=== PATIENT | female | born 1990 | race Caucasian/White ===

== ENCOUNTER 2022-01-11 08:13 | Outpatient (CLI) | payer OTHER | END 2022-01-11 08:14 | disposition critical access hospital (66) | LOC: EMS 08:13 | DX: R56.9 Unspecified convulsions (principal); R41.0 Disorientation, unspecified | CPT/HCPCS: A0425; A0429 ==

== ENCOUNTER 2022-01-11 08:24 | Emergency (ER) | payer OTHER ==
[~2022-01-11 08:24] MED LIST: DEXTROSE 10% 250 ML IV ONE
[2022-01-11] MEDS ORDERED: LORazepam 2 MG/ML VIAL IVP STA ×6 (08:31→15:51)
[2022-01-11] MEDS ORDERED: LORazepam 2 MG/ML VIAL ONE ×2 (08:33→15:47)
[2022-01-11] MEDS ORDERED: SODIUM CHLORIDE 0.9% 1,000 ML IV STA (08:33)
--- NOTE | 2022-01-11 08:36 | ED Physician Documentation ---
PD HPI SEIZURE - Stated complaint Stated Complaint: POST SZ - History obtained from History obtained from: Family (spouse), EMS - History of Present Illness Timing - onset: Today Witnessed: Witnessed Number of seizures: Multiple (The patient has had some mild cough and congestion over the last few days. No vomiting. This morning the noted her to be confused and having unpurposeful movements of the arms and legs. He offered her some juice and she took some sips. Then had a general stiffening/snoring breathing.) Description of seizure activity: Generalized Injury during seizure: No: Fell, Head injury Associated symptoms: Other (recent URI symptoms for few days.). No: Nausea / vomiting Contributing factors: Fever. No: Low blood sugar, Head injury Similar symptoms before: Has not had sx before Recently seen: Not recently seen Review of Systems Unable to obtain: Other (info from ) Constitutional: reports: Myalgias Nose: reports: Rhinorrhea / runny nose, Congestion Respiratory: reports: Cough GI: denies: Vomiting, Diarrhea Neurologic: denies: Headache (had not been complaining of notable headache per .) PD PAST MEDICAL HISTORY - Past Medical History Cardiovascular: None Respiratory: None Neuro: None Endocrine/Autoimmune: None - Past Surgical History Past Surgical History: No - Present Medications Home Medications: Ambulatory Orders Medication Instructions Recorded Confirmed Norgestimate-Ethinyl Estradiol 1 tab PO DAILY 12/17/14 12/17/14 [Ortho Tri-Cyclen 28 Tablet] - Allergies Allergies/Adverse Reactions: Allergies Allergy/AdvReac Type Severity Reaction Status Date / Time No Known Drug Allergies Allergy Verified 01/11/22 08:47 - Living Situation Living Situation: reports: With spouse/s.o. Living Arrangement: reports: At home - Social History Does the pt smoke?: No Smoking Status: Never smoker Does the pt drink ETOH?: No Does the pt have substance abuse?: No Substance Use and Type: Marijuana PD ED PE NORMAL - Vitals Vital signs reviewed: Yes - General General: Well developed/nourished, Other (tenseness of left arm, some thrashing of legs at times. Eyes deviated to right. Facial muscle tension, more to the left. ) - HEENT HEENT: Atraumatic, Other (Patient has a adequate gag reflex.) - Neck Neck: Supple, no meningeal sign, No adenopathy - Cardiac Cardiac: RRR (tachycardic but regular), No murmur - Respiratory Respiratory: No respiratory distress, Clear bilaterally - Abdomen Abdomen: Soft, Non distended - Derm Derm: Normal color, Warm and dry, No rash - Extremities Extremities: No edema, No calf tenderness / cord - Neuro Neuro: No motor deficit (She is having symmetric extremity movement after Ativan with apparent cessation of the seizure. She is not opening her her eyes nor interactive.). No: Alert and oriented X 3 Results - Vitals Vitals: Vital Signs - 24 hr 01/11/22 01/11/22 01/11/22 08:38 09:04 09:30 Temperature 36.5 C Heart Rate 124 H 119 H 115 H Respiratory 25 H 24 26 H Rate Blood Pressure 126/109 H 147/89 H 126/103 H O2 Saturation 95 96 99 If not protocol 2 : Oxygen Flow, liters/minute 01/11/22 01/11/22 01/11/22 10:00 10:30 11:21 Temperature Heart Rate 109 H 108 H 112 H Respiratory 30 H 24 25 H Rate Blood Pressure 151/109 H 148/75 H 148/93 H O2 Saturation 99 99 100 If not protocol 2 : Oxygen Flow, liters/minute 01/11/22 01/11/22 01/11/22 11:30 12:55 13:30 Temperature 37.8 C Heart Rate 124 H 126 H 121 H Respiratory 28 H 38 H 24 Rate Blood Pressure 125/111 H 136/123 H 135/102 H O2 Saturation 95 100 100 If not protocol 2 2 : Oxygen Flow, liters/minute 01/11/22 01/11/22 14:28 14:30 Temperature 37.6 C Heart Rate 131 H 124 H Respiratory 23 29 H Rate Blood Pressure 153/79 H 127/68 O2 Saturation 100 100 If not protocol 2 : Oxygen Flow, liters/minute Oxygen O2 Source Room air Oxygen Flow Rate 2 - EKG (time done) 08:39 Rate: Rate (enter#) (114) Rhythm: Sinus tachycardia [place]: Normal Intervals: Normal VT QRS: Normal Ischemia: Normal ST segments. No: ST elevation c/w ischemia, ST depression - Labs Labs: Microbiology 01/11/22 11:04 CSF Culture - Preliminary Cerebral Spinal Fluid Laboratory Tests 01/11/22 01/11/22 01/11/22 08:39 08:39 08:39 WBC 9.2 RBC 4.76 Hgb 13.8 Hct 41.5 MCV 87.2 MCH 29.0 MCHC 33.3 RDW 12.0 Plt Count 294 MPV 9.9 Neut # (Auto) 6.5 Lymph # (Auto) 2.0 [place] # (Auto) 0.6 Eos # (Auto) 0.0 Baso # (Auto) 0.0 Absolute Nucleated RBC 0.00 Nucleated RBC % 0.0 Sodium 138 Potassium 2.7 L Chloride 113 H Carbon Dioxide 17 L Anion Gap 8.0 BUN 6 Creatinine 0.5 Estimated GFR (MDRD) 146 Glucose 100 Calcium 6.9 L Magnesium 1.4 L Total Bilirubin 0.4 AST 17 ALT 20 Alkaline Phosphatase 44 C-Reactive Protein < 1.0 Total Protein 5.7 L Albumin 3.1 L Globulin 2.6 Albumin/Globulin Ratio 1.2 Lipase 29 Procalcitonin TSH Serum HCG, Qual NEGATIVE Urine Color Urine Clarity Urine pH Ur Specific [place] Urine Protein Urine Glucose (UA) Urine Ketones Urine Occult Blood Urine Nitrite Urine Bilirubin Urine Urobilinogen Ur Leukocyte Esterase Urine RBC Urine WBC Ur Squamous Epith Cells Urine Bacteria Ur Microscopic Review Urine Culture Comments CSF Color CSF Clarity Xanthrochromic CSF WBC CSF RBC CSF Cell Count Tube # CSF Neutrophils CSF Lymphocytes CSF Monocytes CSF Eosinophils % CSF Basophils CSF Glucose CSF Total Protein Nasal Adenovirus (PCR) Nasal B. parapertussis DNA (PCR) Nasal Coronavir 229E PCR Nasal Coronavir HKU1 PCR Nasal Coronavir NL63 PCR Nasal Coronavir OC43 PCR Nasal Enterovir/Rhinovir PCR Nasal Influenza B PCR Nasal Influenza A PCR Nasal Parainfluen 1 PCR Nasal Parainfluen 2 PCR Nasal Parainfluen 3 PCR Nasal Parainfluen 4 PCR Nasal RSV (PCR) Nasal B.pertussis DNA PCR Nasal C.pneumoniae (PCR) [place] Human Metapneumo PCR Nasal M.pneumoniae (PCR) Nasal SARS-CoV-2 (PCR) Urine Opiates Screen Ur Oxycodone Screen Urine Methadone Screen Ur Propoxyphene Screen Ur Barbiturates Screen Ur Tricyclics Screen Ur Phencyclidine Scrn Ur Amphetamine Screen U Methamphetamines Scrn U Benzodiazepines Scrn Urine Cocaine Screen U Cannabinoids Screen 01/11/22 01/11/22 01/11/22 08:39 09:08 09:20 WBC RBC Hgb Hct MCV MCH MCHC RDW Plt Count MPV Neut # (Auto) Lymph # (Auto) [place] # (Auto) Eos # (Auto) Baso # (Auto) Absolute Nucleated RBC Nucleated RBC % Sodium Potassium Chloride Carbon Dioxide Anion Gap BUN Creatinine Estimated GFR (MDRD) Glucose Calcium Magnesium Total Bilirubin AST ALT Alkaline Phosphatase C-Reactive Protein Total Protein Albumin Globulin Albumin/Globulin Ratio Lipase Procalcitonin < 0.05 TSH 0.97 Serum HCG, Qual Urine Color YELLOW Urine Clarity CLEAR Urine pH 6.0 Ur Specific [place] >=1.030 H Urine Protein TRACE Urine Glucose (UA) NEGATIVE Urine Ketones NEGATIVE Urine Occult Blood SMALL H Urine Nitrite NEGATIVE Urine Bilirubin NEGATIVE Urine Urobilinogen 0.2 (NORMAL) Ur Leukocyte Esterase NEGATIVE Urine RBC 0-5 Urine WBC 0-3 Ur Squamous Epith Cells FEW Squamous Urine Bacteria Few Ur Microscopic Review INDICATED Urine Culture Comments NOT INDICATED CSF Color CSF Clarity Xanthrochromic CSF WBC CSF RBC CSF Cell Count Tube # CSF Neutrophils CSF Lymphocytes CSF Monocytes CSF Eosinophils % CSF Basophils CSF Glucose CSF Total Protein Nasal Adenovirus (PCR) NOT DETECTED Nasal B. parapertussis DNA (PCR) NOT DETECTED Nasal Coronavir 229E PCR NOT DETECTED Nasal Coronavir HKU1 PCR NOT DETECTED Nasal Coronavir NL63 PCR NOT DETECTED Nasal Coronavir OC43 PCR NOT DETECTED Nasal Enterovir/Rhinovir PCR NOT DETECTED Nasal Influenza B PCR NOT DETECTED Nasal Influenza A PCR NOT DETECTED Nasal Parainfluen 1 PCR NOT DETECTED Nasal Parainfluen 2 PCR NOT DETECTED Nasal Parainfluen 3 PCR NOT DETECTED Nasal Parainfluen 4 PCR NOT DETECTED Nasal RSV (PCR) NOT DETECTED Nasal B.pertussis DNA PCR NOT DETECTED Nasal C.pneumoniae (PCR) NOT DETECTED [place] Human Metapneumo PCR NOT DETECTED Nasal M.pneumoniae (PCR) NOT DETECTED Nasal SARS-CoV-2 (PCR) NOT DETECTED Urine Opiates Screen NEGATIVE Ur Oxycodone Screen NEGATIVE Urine Methadone Screen NEGATIVE Ur Propoxyphene Screen NEGATIVE Ur Barbiturates Screen NEGATIVE Ur Tricyclics Screen NEGATIVE Ur Phencyclidine Scrn NEGATIVE Ur Amphetamine Screen NEGATIVE U Methamphetamines Scrn NEGATIVE U Benzodiazepines Scrn NEGATIVE Urine Cocaine Screen NEGATIVE U Cannabinoids Screen POSITIVE H 01/11/22 11:04 WBC RBC Hgb Hct MCV MCH MCHC RDW Plt Count MPV Neut # (Auto) Lymph # (Auto) [place] # (Auto) Eos # (Auto) Baso # (Auto) Absolute Nucleated RBC Nucleated RBC % Sodium Potassium Chloride Carbon Dioxide Anion Gap BUN Creatinine Estimated GFR (MDRD) Glucose Calcium Magnesium Total Bilirubin AST ALT Alkaline Phosphatase C-Reactive Protein Total Protein Albumin Globulin Albumin/Globulin Ratio Lipase Procalcitonin TSH Serum HCG, Qual Urine Color Urine Clarity Urine pH Ur Specific [place] Urine Protein Urine Glucose (UA) Urine Ketones Urine Occult Blood Urine Nitrite Urine Bilirubin Urine Urobilinogen Ur Leukocyte Esterase Urine RBC Urine WBC Ur Squamous Epith Cells Urine Bacteria Ur Microscopic Review Urine Culture Comments CSF Color COLORLESS CSF Clarity CLEAR Xanthrochromic ABSENT CSF WBC 93 H* CSF RBC 228 H CSF Cell Count Tube # CSF TUBE# 3 CSF Neutrophils 0 CSF Lymphocytes 70 CSF Monocytes 30 CSF Eosinophils % 0 CSF Basophils 0 CSF Glucose 70 CSF Total Protein 63 H Nasal Adenovirus (PCR) Nasal B. parapertussis DNA (PCR) Nasal Coronavir 229E PCR Nasal Coronavir HKU1 PCR Nasal Coronavir NL63 PCR Nasal Coronavir OC43 PCR Nasal Enterovir/Rhinovir PCR Nasal Influenza B PCR Nasal Influenza A PCR Nasal Parainfluen 1 PCR Nasal Parainfluen 2 PCR Nasal Parainfluen 3 PCR Nasal Parainfluen 4 PCR Nasal RSV (PCR) Nasal B.pertussis DNA PCR Nasal C.pneumoniae (PCR) [place] Human Metapneumo PCR Nasal M.pneumoniae (PCR) Nasal SARS-CoV-2 (PCR) Urine Opiates Screen Ur Oxycodone Screen Urine Methadone Screen Ur Propoxyphene Screen Ur Barbiturates Screen Ur Tricyclics Screen Ur Phencyclidine Scrn Ur Amphetamine Screen U Methamphetamines Scrn U Benzodiazepines Scrn Urine Cocaine Screen U Cannabinoids Screen - Rads (name of study) head CT Radiology: Prelim report reviewed (no acute process. no ICH. ), See rad report chest xray Radiology: Prelim report reviewed (no cardiopulmonary acute process), See rad report Procedures - Lumbar Puncture Position: Laying right side Location: L3-L4 Anesthesia: Local lidocaine CSF: Clear Other: Sterile prep and drape, Patient tolerated well, No complications PD MEDICAL DECISION MAKING - ED course Complexity details: reviewed results (CSF does show a mild leukocytosis with predominantly lymphocyte and monocyte. Concerning for viral encephalitis. CT head did not show any bleeding. Blood tests otherwise are showing a low potassium and magnesium but otherwise normal.), re-evaluated patient, considered differential (New onset seizure with apparent recurring seizures by EMS and here in the ER. They are stopped with lorazepam. We will check labs, CT head, spinal tap, viral panel and U tox for causes), d/w family (spouse) ED course: The patient had been feeling ill with malaise and congestion for a few days. Onset of seizure and altered mentation this morning. Apparent recurrent seizures clinically without return to normal. Concern for status epilepticus versus encephalitic. She did have improvement in her seizure type movements with lorazepam. She was given Keppra 1 g IV. She did seem to have continued episodes of muscle tightening of the left arm and leg with some deviation of the head to the right. This would stop with lorazepam. She was subsequently given a second dose of 1 g Keppra at the suggestion of neurology. Subsequently she has been restless with arm and leg movement but no seizure type activity in the last 2 hours. We did look for transfer of the patient to other facilities. No other facilities had beds available initially. I did talk with the neurologist on- call at [facility] with some advice on treatment that was largely mostly already done with the exception of more Keppra. Subsequently [facility] called back that they did have beds available after discharges and will be excepting the patient on transfer. I talked with Dr. Rios who is the hospitalist and accepts the transfer. The patient remained stable at this point though still obtunded without any verbal interaction or eye opening. Oxygenation is adequate and respirations seem good. She is maintained with head of bed position elevated to help with potential reflux. She remains tachycardic but her good blood pressure. Temperature did go up to 100.6 and she was given some affirmative. No Airlift Justin subsequently was able to come in will be taken the patient to [facility]. I felt the patient needed to have minimal out of hospital time because of her earlier repeated seizures etc. - Critical Care Time(min): 75 Time Includes: Direct patient care, Reassess patient, Document care, Coordinate care Procedures excluded from critical care time: EKG Departure - Departure Disposition: 02 Transfer Acute Care Hosp Clinical Impression: New onset seizure, AMS (altered mental status), Viral encephalitis, Acute repetitive seizure Condition: Stable
[2022-01-11 09:03] LABS: ALBUMIN 3.1 g/dL (3.2-5.5); ALBUMIN/GLOBULIN RATIO 1.2 (1.0-2.2); ALKALINE PHOSPHATASE 44 IU/L (42-121); ALT ALANINE AMINOTRANSFERASE 20 IU/L (10-60); AST ASPARTATE AMINOTRANSFERASE 17 IU/L (10-42); BILIRUBIN,TOTAL 0.4 mg/dL (0.2-1.0); BUN - BLOOD UREA NITROGEN 6 mg/dL (6-20); CALCIUM 6.9 mg/dL (8.5-10.3); CARBON DIOXIDE - CO2 17 mmol/L (21-32); CHLORIDE 113 mmol/L (101-111); CREATININE 0.5 mg/dL (0.4-1.0); GFR - MDRD 146 (>89); GLUCOSE 100 mg/dL (70-100); LIPASE 29 U/L (22-51); MAGNESIUM 1.4 mg/dL (1.7-2.8); POTASSIUM 2.7 mmol/L (3.5-5.0); SODIUM 138 mmol/L (135-145); TOTAL PROTEIN 5.7 g/dL (6.7-8.2)
[2022-01-11] MEDS ORDERED: levETIRAcetam 500 MG/5 ML VIAL IVP STA ×3 (09:05→13:07)
--- NOTE | 2022-01-11 09:11 | CT Report ---
PROCEDURE: CT brain without contrast INDICATIONS: new seizures this morning TECHNIQUE: Noncontrast 4.5 mm thick angled axial sections acquired from the foramen magnum to the vertex. For r adiation dose reduction, the following was used: automated exposure control, adjustment of mA and/or kV according to patient size. COMPARISON: None. FINDINGS: Image quality: Excellent. CSF spaces: Basal cisterns are patent. No extra-axial fluid collections. Ventricles are normal in size and shape. Brain: No midline shift. No intracranial masses or hemorrhage. Knight-white matter interface is norm al. Skull and face: Calvarium and visualized facial bones are intact, without suspicious lesions. Sinuses: Partially imaged mucosal thickening noted in the left maxillary sinus IMPRESSION: Unremarkable CT brain without intracranial hemorrhage or mass effect. Left maxillary mucosal sinus disease, partially imaged Reviewed by: Fredy Merino MD on 01/11/2022 8:10 AM [facility] Approved by: Fredy Merino MD on 01/11/2022 8:10 AM [facility] Station ID: [id number]
[2022-01-11 09:12] LABS: CRP - C-REACTIVE PROTEIN < 1.0 mg/dL (0-1.0); HCG,QUALITATIVE BLOOD NEGATIVE
--- NOTE | 2022-01-11 09:12 | XRAY Report ---
PROCEDURE: Chest 1 View X-Ray INDICATIONS: cough TECHNIQUE: One view of the chest was acquired. COMPARISON: None. FINDINGS: Surgical changes and devices: None. Lungs and pleura: No pleural effusions or pneumothorax. Lungs are clear. Low lung volumes accentua te pulmonary interstitium and heart size. Mediastinum: Mediastinal contours appear normal. Heart size is normal. Bones and chest wall: No suspicious bony lesions. Overlying soft tissues appear unremarkable. IMPRESSION: No acute cardiopulmonary findings Reviewed by: Fredy Merino MD on 01/11/2022 8:11 AM [facility] Approved by: Fredy Merino MD on 01/11/2022 8:11 AM [facility] Station ID: [id number]
[2022-01-11 09:15] LABS: BASOPHILS % (AUTO) 0.3 %; EOSINOPHILS % (AUTO) 0.2 %; HCT - HEMATOCRIT 41.5 % (37.0-47.0); HGB - HEMOGLOBIN 13.8 g/dL (12.0-16.0); LYMPHOCYTES % (AUTO) 21.5 %; MEAN CORPUSCULAR HGB CONC 33.3 g/dL (32.0-36.0); MEAN CORPUSCULAR VOLUME 87.2 fL (81.0-99.0); MEAN PLATELET VOLUME 9.9 fL (7.9-10.8); MONOCYTES # (AUTO) 0.6 10^3/uL (0.0-1.0); MONOCYTES % (AUTO) 6.4 %; NEUTROPHILS # (AUTO) 6.5 10^3/uL (1.5-6.6); NEUTROPHILS % (AUTO) 70.7 %; PLT - PLATELET COUNT 294 10^3/uL (130-450); RED BLOOD COUNT 4.76 10^6/uL (4.20-5.40); THYROID STIMULATING HORMONE 0.97 uIU/mL (0.34-5.60); WHITE BLOOD COUNT 9.2 x10^3/uL (4.8-10.8)
[2022-01-11] MEDS ORDERED: MAGNESIUM SULFATE 2 GRAM 2 GM/50 ML BAG IV ONE (09:21)
[2022-01-11] MEDS ORDERED: POTASSIUM CHLOR 10 MEQ/100 ML 10 MEQ/100 ML BAG IV STA (09:21)
[2022-01-11 09:25] LABS: MUDS CUTOFF CONCENTRATIONS CUTOFF CONC BELOW:
[2022-01-11 09:29] LABS: BILIRUBIN,URINE NEGATIVE (NEGATIVE); GLUCOSE, URINE (UA) NEGATIVE (NEGATIVE); KETONES,URINE (UA) NEGATIVE (NEGATIVE); LEUKOCYTE ESTERASE, URINE NEGATIVE (NEGATIVE); NITRITE,URINE NEGATIVE (NEGATIVE); OCCULT BLOOD,URINE SMALL (NEGATIVE); PROTEIN,URINE TRACE mg/dL (NEGATIVE); UROBILINOGEN,URINE 0.2 (NORMAL) E.U./dL (NORMAL)
[2022-01-11 09:30] LABS: CLARITY,URINE CLEAR (CLEAR)
[2022-01-11 09:38] LABS: AMPHETAMINE SCREEN,URINE NEGATIVE (NEGATIVE); BARBITURATE SCREEN,UR NEGATIVE (NEGATIVE); BENZODIAZEPINES SCREEN, URINE NEGATIVE (NEGATIVE); COCAINE SCREEN URINE NEGATIVE (NEGATIVE); METHADONE SCREEN, URINE NEGATIVE (NEGATIVE); METHAMPHETAMINES SCREEN, URINE NEGATIVE (NEGATIVE); OPIATE SCREEN, URINE NEGATIVE (NEGATIVE); OXYCODONE SCREEN, URINE NEGATIVE (NEGATIVE); PROPOXYPHENE SCREEN, URINE NEGATIVE (NEGATIVE); THC CANNABINOID SCREEN, URINE POSITIVE (NEGATIVE); TRICYCLIC ANTIDEPRESSANT,URINE NEGATIVE (NEGATIVE)
[2022-01-11 09:43] LABS: BACTERIA,URINE Few /HPF (None Seen); RBC,URINE 0-5 /HPF (0-5); SQUAMOUS EPITHELIAL CELL,UR FEW Squamous (<= Few); WBC,URINE 0-3 /HPF (0-5)
[2022-01-11 09:55] LABS: PROCALCITONIN < 0.05 ng/mL (<0.5)
[2022-01-11 10:09] LABS: B. PARAPERTUSSIS- RESP PCR PAN NOT DETECTED; B. PERTUSSIS- RESP PCR PANEL NOT DETECTED; C. PNEUMONIAE- RESP PCR PANEL NOT DETECTED; CORONAVIRUS 229E-RESP PCR NOT DETECTED; CORONAVIRUS HKU1-RESP PCR NOT DETECTED; CORONAVIRUS NL63-RESP PCR NOT DETECTED; CORONAVIRUS OC43-RESP PCR NOT DETECTED; HUMAN METAPNEUMOVIRUS NOT DETECTED; INFLUENZA A- RESP PCR PANEL NOT DETECTED; INFLUENZA B - RESP PCR PANEL NOT DETECTED; M. PNEUMONIAE- RESP PCR PANEL NOT DETECTED; PARAINFLUENZA VIRUS 1 NOT DETECTED; PARAINFLUENZA VIRUS 2 NOT DETECTED; PARAINFLUENZA VIRUS 3 NOT DETECTED; PARAINFLUENZA VIRUS 4 NOT DETECTED; RHINOVIRUS/ENTEROVIRUS NOT DETECTED; RSV- RESP PCR PANEL NOT DETECTED; SARS-CoV-2 -RESP PCR PANEL NOT DETECTED
[2022-01-11] MEDS ORDERED: lidocaine 1% 20 ML MDV ONE (10:50)
[2022-01-11 11:36] LABS: CLARITY,CSF CLEAR (CLEAR); COLOR,CSF COLORLESS (COLORLESS); CSF - GLUCOSE 70 mg/dL (45-70); CSF TUBE # CSF TUBE# 3; CSF XANTHOCHROMIA ABSENT (ABSENT); TOTAL PROTEIN,CSF 63 mg/dL (15-45)
[2022-01-11 12:29] LABS: BASOPHILS,CSF 0 %; EOSINOPHILS,CSF 0 %; LYMPHOCYTES,CSF 70 % (40-80); MONOCYTES,CSF 30 % (15-45); NEUTROPHILS,CSF 0 % (0-6)
[2022-01-11 12:47] LABS: RED BLOOD CELL,CSF 228 /mm^3 (0-1); WHITE BLOOD CELL,CSF 93 /mm^3 (0-5)
[2022-01-11] MEDS ORDERED: cefTRIAXone 1 GM VIAL IVP STA (12:52)
[2022-01-11] MEDS ORDERED: ACYCLOVIR INJ 500 MG in SODIUM CHLORIDE 0.9% 250 ML IV STA (12:53)
[2022-01-11 14:42] VITALS: BP 127/68
[2022-01-11] MEDS ORDERED: ACETAMINOPHEN 1,000 MG/100 ML 1,000 MG/100 ML BAG IV ONE (15:39)
== END 2022-01-11 16:11 | disposition short-term general hospital (02) ==
LOC: EDUNIT# → ED 08:24
DX: A86 Unspecified viral encephalitis (principal); R56.9 Unspecified convulsions; Z20.822 Contact with and (suspected) exposure to COVID-19
CPT/HCPCS: 36415; 62270; 70450; 71045; 80053; 80306; 81001; 81599; 82945; 83690; 83735; 84145; 84157; 84443; 84703; 85025; 86140; 87070; 87205; 87529; 87633; 89051; 93005; 96365; 96367; 96375; 96376; 99285; 99291; 99292; J0131; J0133; J2060; J3490; 81003; 87086

== ENCOUNTER 2023-06-01 08:00 | Outpatient (CLI) | payer OTHER ==
[2023-06-01 16:26] LABS: BILIRUBIN,URINE NEGATIVE (NEGATIVE); GLUCOSE, URINE (UA) NEGATIVE (NEGATIVE); KETONES,URINE (UA) NEGATIVE (NEGATIVE); LEUKOCYTE ESTERASE, URINE NEGATIVE (NEGATIVE); NITRITE,URINE NEGATIVE (NEGATIVE); OCCULT BLOOD,URINE NEGATIVE (NEGATIVE); PROTEIN,URINE NEGATIVE (NEGATIVE); UROBILINOGEN,URINE 0.2 (NORMAL) E.U./dL (NORMAL)
[2023-06-01 17:03] LABS: BACTERIA,URINE None Seen /HPF (None Seen); CLARITY,URINE CLEAR (CLEAR); RBC,URINE 0-5 /HPF (0-5); SQUAMOUS EPITHELIAL CELL,UR RARE Squamous (<= Few); WBC,URINE 0-3 /HPF (0-5)
== END 2023-06-01 23:59 | disposition home or self-care (01) ==
LOC: LAB.WC 08:00
PROVIDERS: ATTEND Obstetrics & Gynecology
DX: Z34.80 Encounter for supervision of other normal pregnancy, unspecified trimester (principal)
CPT/HCPCS: 81001; 87086

== ENCOUNTER 2023-06-13 11:45 | Outpatient (CLI) | payer OTHER ==
--- NOTE | 2023-06-13 17:52 | Ultrasound Report ---
PROCEDURE: OB 1st Trimester w/TV INDICATIONS: POSITIVE TEST OUTSIDE/PRIOR DATING DATA: Last menstrual period (LMP): 04/13/23. LMP-based estimated date of delivery (TASHA): 01/18/24. First dating scan (date and location): 06/13/2023. Estimated date of delivery (TASHA) from first dating scan: 01/23/2024. TECHNIQUE: Real-time scanning was performed of the fetus and maternal pelvic organs, with image documentation. Endovaginal scanning was also performed to better visualize the fetus and maternal ovaries. COMPARISON: None. FINDINGS: Intrauterine gestational sac present. Embryo: Single intrauterine with crown-rump length measuring 1.6 cm corresponding to 8 wee ks 0 days Heart rate: 171 bpm. Other: Small subchorionic hemorrhage measuring 1.7 x 1.2 x 1.4 cm. Measurement variability in dating: +/- 4 weeks by LMP, +/- 7 days by mean sac diameter (use before 6 weeks gestation if crown-rump length not able to be measured), +/- 5 days by crown-rump length (6-12 weeks gestation). Maternal organs: Ovaries appear within normal limits. IMPRESSION: Single live intrauterine with gestational age of 8 weeks 0 days. Recommend follow-up imaging at 20-22 weeks for dates and anatomy. Reviewed by: Tigist Diaz MD on 06/13/2023 5:50 PM PDT Approved by: Tigist Diaz MD on 06/13/2023 5:50 PM PDT Station ID: [id number]
== END 2023-06-13 11:46 | disposition home or self-care (01) ==
LOC: DI 11:45
PROVIDERS: ATTEND Obstetrics & Gynecology
DX: Z34.81 Encounter for supervision of other normal pregnancy, first trimester (principal)

== ENCOUNTER 2023-07-03 08:00 | Outpatient (CLI) | payer OTHER ==
[2023-07-03 21:06] LABS: CHLAMYDIA TRACHOMATIS DNA NEGATIVE (NEGATIVE); NEISSERIA GONORRHOEAE DNA NEGATIVE (NEGATIVE); TRICHOMONAS VAGINALIS DNA NEGATIVE (NEGATIVE)
== END 2023-07-03 23:59 | disposition home or self-care (01) ==
LOC: LAB.WC 08:00
PROVIDERS: ATTEND Obstetrics & Gynecology
DX: Z11.3 Encounter for screening for infections with a predominantly sexual mode of transmission (principal)
CPT/HCPCS: 87491; 87591; 87661

== ENCOUNTER 2023-07-25 09:49 | Outpatient (CLI) | payer OTHER ==
[2023-07-25 18:35] LABS: BASOPHILS % (AUTO) 0.4 %; EOSINOPHILS % (AUTO) 0.4 %; HCT - HEMATOCRIT 41.8 % (37.0-47.0); HGB - HEMOGLOBIN 13.3 g/dL (12.0-16.0); LYMPHOCYTES # (AUTO) 1.6 10^3/uL (1.5-3.5); LYMPHOCYTES % (AUTO) 16.9 %; MEAN CORPUSCULAR HEMOGLOBIN 28.6 pg (27.0-31.0); MEAN CORPUSCULAR HGB CONC 31.8 g/dL (32.0-36.0); MEAN CORPUSCULAR VOLUME 89.9 fL (81.0-99.0); MEAN PLATELET VOLUME 10.6 fL (7.9-10.8); MONOCYTES # (AUTO) 0.4 10^3/uL (0.0-1.0); MONOCYTES % (AUTO) 4.4 %; NEUTROPHILS # (AUTO) 7.3 10^3/uL (1.5-6.6); NEUTROPHILS % (AUTO) 77.6 %; PLT - PLATELET COUNT 297 10^3/uL (130-450); RED BLOOD COUNT 4.65 10^6/uL (4.20-5.40); RED CELL DISTRIBUTION WIDTH 12.7 % (12.0-15.0); WHITE BLOOD COUNT 9.4 x10^3/uL (4.8-10.8)
[2023-07-27 06:08] LABS: HBsAG SCREEN Negative (Negative); HIV SCREEN 4TH GENERATION Non Reactive (Non Reactive)
== END 2023-07-25 09:50 | disposition home or self-care (01) ==
LOC: LAB.N 09:49
PROVIDERS: ATTEND Obstetrics & Gynecology
DX: Z34.80 Encounter for supervision of other normal pregnancy, unspecified trimester (principal); Z36.89 Encounter for other specified antenatal screening
CPT/HCPCS: 36415; 85025; 86592; 86762; 86787; 86803; 86850; 86900; 86901; 87340; 87389

== ENCOUNTER 2023-09-07 18:39 | Outpatient (CLI) | payer OTHER ==
--- NOTE | 2023-09-08 15:20 | Ultrasound Report ---
PROCEDURE: OB 14+ Weeks INDICATIONS: SUPERVISION OF OUTSIDE/PRIOR DATING DATA: Last menstrual period (LMP): 04/13/2023. LMP-based estimated date of delivery (TASHA): 01/18/2024. First dating scan (date and location): 06/13/2023. Estimated date of delivery (TASHA) from first dating scan: 01/23/2024. The below data below was generated using the working TASHA of 01/18/2024 TECHNIQUE: Real-time scanning was performed of the fetus, with image documentation and biometric measurements. Endovaginal scanning: Not performed. COMPARISON: 06/13/2023 FINDINGS: General: A single living intrauterine gestation is present. Presentation: Vertex Placenta: Placental position is anterior, without previa. Amniotic fluid index: 18.8 cm, 85.1% for gestational age. heart rate: 143 beats per minute. Maternal cervical canal: Closed and measures 3.7 cm long; normal length is 2.5 cm or more. biometrics: Biparietal diameter: 5.04 cm, 21 weeks, 2 days, 59.9% Head circumference: 19.59 cm, 21 weeks, 6 days, 74.9% Abdominal circumference: 16.18 cm, 21 weeks, 2 days, 52.1%. Femur length: 3.45 cm, 20 weeks, 6 days, 35.9% Estimated gestational age from initial scan: 21 weeks, 0 day Composite gestational age from present scan: 21 weeks, 1 day Estimated weight and percentile: 403.3 g, 53.4%. Measurement variability for biometric dating: +/- 10 days from 12-20 weeks gestation, +/- 2 weeks fro m 20-30 weeks gestation, +/- 3 weeks for 30 weeks gestation or later. Anatomic survey: Neuro: Ventricles are non-dilated at less than 10 mm. Cisterna magna is normal at 3-11 mm. Cerebel lum is normal in size and morphology. Nuchal skin fold: Normal at less than 6 mm between 14-20 weeks gestational age. Face: Nose and lips, facial profile are not well seen. Spine: No evidence for spina bifida. Heart: 4-chambered heart is present. Ventricular outflow tracts are not well seen. Diaphragm: Diaphragm is intact. Stomach: Left-sided stomach is present. Kidneys: No hydronephrosis. Normal is less than 5 mm in 2nd trimester, less than 7 mm in 3rd trimester. Cord: 3-vessel cord has orthotopic insertion. Bladder: Normal in size. Extremities: All 4 extremities are not well seen. IMPRESSION: 1. Single live intrauterine gestation with fetus in vertex presentation. heart rate is 143 bpm. Normal amount of amniotic fluid. COREY equals 18.8 cm. Estimated weight is at 53.4%. 2. facial profile, ventricular outflow tracts, and all 4 extremities are suboptimally evaluated due to position. Rest of the anatomic survey is normal. Reviewed by: Marvin Whittaker MD on 09/08/2023 3:19 PM PDT Approved by: Marvin Whittaker MD on 09/08/2023 3:19 PM PDT Station ID: [id number]
== END 2023-09-07 18:40 | disposition home or self-care (01) ==
LOC: DI 18:39
PROVIDERS: ATTEND Obstetrics & Gynecology
DX: Z34.82 Encounter for supervision of other normal pregnancy, second trimester (principal)

== ENCOUNTER 2023-09-18 19:49 | Outpatient (CLI) | payer OTHER ==
--- NOTE | 2023-09-19 14:33 | Ultrasound Report ---
PROCEDURE: OB Follow up INDICATIONS: SUPERVISION OF OUTSIDE/PRIOR DATING DATA: Last menstrual period (LMP): 04/13/2023. LMP-based estimated date of delivery (TASHA): 01/18/2020. First dating scan (date and location): 06/13/2023. Estimated date of delivery (TASHA) from first dating scan: 01/23/2024. The below data below was generated using the clinical TASHA of 01/18/2024 TECHNIQUE: Real-time scanning was performed of the fetus, with image documentation and biometric measurements. COMPARISON: OB ultrasound 09/07/2023 FINDINGS: General: A single living intrauterine gestation is present. Presentation: Vertex Placenta: Placental position is anterior, without previa. Amniotic fluid index: 19.5 cm, within normal limits for gestational age. heart rate: 145 beats per minute. Maternal cervical canal: 7 cm long; normal length is 2.5 cm or more. biometrics: Estimated gestational age from initial scan: 22 weeks 4 days Other: Outflow tracts and facial features are within normal limits. Profile as well as upper and lowe r extremities remain poorly evaluated. IMPRESSION: Single live intrauterine with gestational age of 22 weeks 4 days. Facial profile as well as upper and lower extremities remain poorly evaluated interval follow-up is r ecommended. Reviewed by: Tigist Diaz MD on 09/19/2023 2:32 PM PDT Approved by: Tigist Diaz MD on 09/19/2023 2:32 PM PDT Station ID: [id number]
== END 2023-09-18 19:50 | disposition home or self-care (01) ==
LOC: DI 19:49
PROVIDERS: ATTEND Obstetrics & Gynecology
DX: Z34.82 Encounter for supervision of other normal pregnancy, second trimester (principal); Z36.89 Encounter for other specified antenatal screening

== ENCOUNTER 2023-10-08 19:16 | Outpatient (CLI) | payer OTHER ==
--- NOTE | 2023-10-11 22:16 | Ultrasound Report ---
PROCEDURE: OB Follow up INDICATIONS: SUPERVISION OF OUTSIDE/PRIOR DATING DATA: Last menstrual period (LMP): 04/13/2023. LMP-based estimated date of delivery (TASHA): 01/18/2024. First dating scan (date and location): 06/13/2023. Estimated date of delivery (TASHA) from first dating scan: 01/23/2024. The below data below was generated using the clinical TASHA of 01/18/2024 TECHNIQUE: Real-time scanning was performed of the fetus, with image documentation and biometric measurements. Endovaginal scanning: Not performed. COMPARISON: 08/19/2023. FINDINGS: General: A single living intrauterine gestation is present. Presentation: Vertex Placenta: Placental position is anterior, without previa. Amniotic fluid index: 14.9 cm, within normal limits for gestational age. heart rate: 160 beats per minute. Maternal cervical canal: Not well seen Estimated gestational age from initial scan: 25 weeks, 3 days Other: Facial profile, upper and lower extremities are seen and within normal limits.. IMPRESSION: 1.Single live intrauterine consistent with 25 weeks and 3 days. 2.Facial profile, upper and lower extremities are seen and within normal limits. Reviewed by: Dixon Diallo MD on 10/11/2023 10:15 PM PDT Approved by: Dixon Diallo MD on 10/11/2023 10:15 PM PDT Station ID: [id number]
== END 2023-10-08 19:17 | disposition home or self-care (01) ==
LOC: DI 19:16
PROVIDERS: ATTEND Obstetrics & Gynecology
DX: Z34.82 Encounter for supervision of other normal pregnancy, second trimester (principal)

== ENCOUNTER 2023-10-13 07:10 | Outpatient (CLI) | payer OTHER ==
[2023-10-13 18:29] LABS: HCT - HEMATOCRIT 39.1 % (37.0-47.0); HGB - HEMOGLOBIN 12.7 g/dL (12.0-16.0); MEAN CORPUSCULAR HEMOGLOBIN 29.4 pg (27.0-31.0); MEAN CORPUSCULAR HGB CONC 32.5 g/dL (32.0-36.0); MEAN CORPUSCULAR VOLUME 90.5 fL (81.0-99.0); MEAN PLATELET VOLUME 10.7 fL (7.9-10.8); RED BLOOD COUNT 4.32 10^6/uL (4.20-5.40); WHITE BLOOD COUNT 9.9 x10^3/uL (4.8-10.8)
[2023-10-13 18:41] LABS: ALBUMIN 3.8 g/dL (3.2-5.5); ALBUMIN/GLOBULIN RATIO 1.4 (1.0-2.2); BILIRUBIN,TOTAL 0.3 mg/dL (0.2-1.0); CREATININE 0.5 mg/dL (0.6-1.3); POTASSIUM 3.5 mmol/L (3.5-4.5); TOTAL PROTEIN 6.5 g/dL (6.4-8.9)
== END 2023-10-13 07:11 | disposition home or self-care (01) ==
LOC: LAB.N 07:10
PROVIDERS: ATTEND Obstetrics & Gynecology
DX: Z34.80 Encounter for supervision of other normal pregnancy, unspecified trimester (principal)
CPT/HCPCS: 36415; 80053; 82950; 85027; 86592

== ENCOUNTER 2024-01-19 19:16 | Inpatient (IN) ==
[2024-01-19] MEDS ORDERED: NIFEdipine 10 MG CAPSULE PO PRN (19:37)
[2024-01-19] MEDS ORDERED: LABETALOL 20 MG/4 ML SYRINGE IVP PRN ×3 (19:37)
[2024-01-19] MEDS ORDERED: fentaNYL 100 MCG/2 ML VIAL IVP PRN (19:37)
[2024-01-19] MEDS ORDERED: SODIUM CHLORIDE FLUSH 0.9% 10 ML SYRINGE IVP PRN (19:37)
[2024-01-19] MEDS ORDERED: miSOPROStoL 200 MCG TABLET PR PRN (19:37)
[2024-01-19] MEDS ORDERED: OXYTOCIN 10 UNIT/ML VIAL IM PRN (19:37)
[2024-01-19] MEDS ORDERED: lidocaine 1% 20 ML MDV ID PRN (19:37)
[2024-01-19] MEDS ORDERED: TERBUTALINE 1 MG/ML VIAL SUBQ PRN (19:37)
[2024-01-19] MEDS ORDERED: hydrALAZINE INJ 20 MG/ML VIAL IVP PRN (19:37)
[2024-01-19] MEDS ORDERED: miSOPROStoL 200 MCG TABLET BC PRN (19:37)
[2024-01-19] MEDS ORDERED: METHYLERGONOVINE 0.2 MG/ML VIAL IM PRN (19:37)
[2024-01-19] MEDS ORDERED: TRANEXAMIC ACID IN NACL 1,000 MG/100 ML BAG IV PRN (19:37)
[2024-01-19] MEDS ORDERED: ROPIVACAINE 0.2% 200 MG/100 ML BAG EP ONE (19:43)
[2024-01-19] MEDS ORDERED: LIDOCAINE 2%-EPI 1:100000 20 ML MDV ONE (19:43)
[2024-01-19] MEDS: LACTATED RINGERS 1,000 ML IV PRN (20:11)
[2024-01-19 20:12] LABS: BASOPHILS % (AUTO) 0.2 %; EOSINOPHILS % (AUTO) 0.3 %; HCT - HEMATOCRIT 37.1 % (37.0-47.0); HGB - HEMOGLOBIN 12.9 g/dL (12.0-16.0); LYMPHOCYTES # (AUTO) 1.7 10^3/uL (1.5-3.5); LYMPHOCYTES % (AUTO) 14.7 %; MEAN CORPUSCULAR HEMOGLOBIN 29.8 pg (27.0-31.0); MEAN CORPUSCULAR HGB CONC 34.8 g/dL (32.0-36.0); MEAN CORPUSCULAR VOLUME 85.7 fL (81.0-99.0); MEAN PLATELET VOLUME 10.1 fL (7.9-10.8); MONOCYTES # (AUTO) 0.8 10^3/uL (0.0-1.0); MONOCYTES % (AUTO) 7.1 %; NEUTROPHILS % (AUTO) 77.4 %; PLT - PLATELET COUNT 255 10^3/uL (130-450); RED BLOOD COUNT 4.33 10^6/uL (4.20-5.40); RED CELL DISTRIBUTION WIDTH 12.6 % (12.0-15.0); WHITE BLOOD COUNT 11.6 x10^3/uL (4.8-10.8)
[2024-01-19] MEDS: AMPICILLIN 2 GM in SODIUM CHLORIDE 0.9% MINIBAG 100 ML IV ONE (20:40)
--- NOTE | 2024-01-19 21:28 | ANESTHESIA PROCEDURE NOTE ---
Pre-Anesthesia VS, & Labs Diagnosis Surgical Diagnosis:: labor pain Procedure Procedure: labor epidural Vitals Vital Signs: Pulse Resp 82 19 01/19/24 19:37 01/19/24 19:37 NPO NPO: Other Is Patient ?: Yes Lab Results Current Lab Results: Laboratory Tests 01/19/24 20:03: WBC 11.6 H, RBC 4.33, Hgb 12.9, Hct 37.1, MCV 85.7, MCH 29.8, MCHC 34.8, RDW 12.6, Plt Count 255, MPV 10.1, Neut # (Auto) 9.0 H, Lymph # (Auto) 1.7, [place] # (Auto) 0.8, Eos # (Auto) 0.0, Baso # (Auto) 0.0, Absolute Nucleated RBC 0.00, Nucleated RBC % 0.0, Blood Type B POSITIVE, Antibody Screen NEGATIVE 01/19/24 20:03 Meds/Allgy Home Medications Ambulatory Orders Medication Instructions Recorded Confirmed vits no.126-ferrous fum tab PO 12/17/23 01/13/24 28 mg iron-folic acid 800 mcg tablet (Classic ) azithromycin 250 mg tablet See Rx Instructions PO .COMPLEX #6 12/23/23 01/13/24 tabs Allergies Allergies Allergy/AdvReac Type Severity Reaction Status Date / Time No Known Drug Allergies Allergy Verified 01/13/24 10:08 [facility] Medical History Medical History (Updated 12/25/23 @ 07:19 by Cailin Ni MD) Macular eruption (07/17/22) 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
[2024-01-19] MEDS: LACTATED RINGERS 500 ML IV ONE (21:30)
[2024-01-19] MEDS ORDERED: ROPIVACAINE 0.2% 200 MG/100 ML BAG EP PRN (21:32)
[2024-01-19] MEDS ORDERED: diphenhydrAMINE INJ 50 MG/ML VIAL IVP PRN (21:32)
[2024-01-19] MEDS ORDERED: METOCLOPRAMIDE 10 MG/2 ML VIAL IVP PRN (21:32)
[2024-01-19] MEDS ORDERED: NALBUPHINE 10 MG/ML AMP IVP PRN (21:32)
[2024-01-19] MEDS ORDERED: NALOXONE 0.4 MG/ML VIAL IVP PRN (21:32)
[2024-01-19] MEDS ORDERED: ONDANSETRON 4 MG/2 ML VIAL IVP PRN (21:32)
[2024-01-19] MEDS: ePHEDrine 50 MG/ML VIAL IVP PRN (21:59)
[2024-01-19] MEDS: LACTATED RINGERS 1,000 ML IV SCH (22:44)
--- NOTE | 2024-01-19 23:06 | HISTORY & PHYSICAL EXAMINATION ---
Admit History Visit Reason Visit Reason: Contractions Care: positive [facility] Risk/History: positive None Complications This : positive None Smoking Status: Never smoker Mother's Labs GBS: positive Group B Strep Positive Rubella Status: positive Immune Other Maternal History Other Maternal History: Presents with painful contractions. at 40w1d. sure of desire of epidural. 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 Uncomplicated 1st with fast delivery (CNM in [place]) - Chava turned 5 on August 26 was in [place]. no longer. She works at [employer]. Pre- Weight:229 BMI: 34.56 Blood type: B+ Antibody: negative CBC: H/H 13.3/41.8 plt 297 RUB:Immune VZV:Immune HBsAg: Negative HepC: NR RPR/AB-EIA: NR HIV: NR PAP: records requested GC/CT: Negative HSV: denies in herself and partner Genetic testing: declines Covid: Pfizer x1 Flu: 12/03 RSV 12/03 FAS: Placenta:Anterior w/o previa Cord:3VC COREY:18.8cm EFW:403.3g 53.4% suboptimal views of facial profile, ventricular outflow tracts and extremities F/U- took two more ultrasound to clear all anatomy as normal. 10/07 50gm OGCT:94 TDAP:10/20 Breast Pump:10/20 RPR 10/12- NR 3rd trimester H/H 12.7/39.1 PLT 255 GBS:collected 12/22- Positive- NKDA Delivery plan: vaginal delivery Contraception: pills? Also discussed Nuva Ring. 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 not ongoing Coma Meningitis Family History Family History Grandfather Cancer Social History Social History Smoking Status: Never smoker Do you dip or chew tobacco?: No Living arrangement: At home Marital Status: Living Condition: With family Support Person: Yes Relationship: Spouse Living Situation Details: , Mike, was in [place]. Daughter, Chava, born 08/26/20 Are you sexually active?: Yes Occupation: [employer] Review of Systems Cardiovascular Denies: shortness of breath with exertion Respiratory Denies: Shortness of breath Neurological Denies: Headache Physical Abdominal Exam Vital Signs: Pulse Resp 82 19 01/19/24 19:37 01/19/24 19:37 Contraction Frequency (min/apart): q3 Contraction Intensity: positive Moderate Uterine Resting Tone: positive Soft Monitoring Heart Rate Baseline: 140 Strip Review: positive Category I Presentation Presentation: positive Vertex Vaginal Exam Membranes: positive Membranes intact Dilation (in cm): 6 Effacement (%): 80 Station: positive 1 Speculum Exam Speculum Exam Performed: positive No Other Notes Labor Progress Note/Additional Text: checked by RN and then epidural placed. Plan for Labor Plan For Labor I expect patient to be DC'd or transferred within 96 hours.: Yes Plan for Labor: Ampicillin until delivery for GBS. Conclusion/Plan Problem List (1) 40 weeks gestation of : (2) Normal labor: (3) GBS (group B Streptococcus carrier), +RV culture, currently : Plan anticipate NVSD. EFW 7.5 pounds Lab Results Lab results reviewed: Yes 01/19/24 20:03
[2024-01-20] MEDS ORDERED: AMPICILLIN 1 GM in SODIUM CHLORIDE 0.9% MINIBAG 100 ML IV SCH
[2024-01-20] MEDS: OXYTOCIN/SODIUM CHLORIDE 500 ML IV PRN (00:51)
--- NOTE | 2024-01-20 01:08 | DELIVERY NOTE ---
Delivery Note Labor Labor: positive Spontaneous Infant Delivery Method Infant Delivery Method: positive Spontaneous vaginal delivery Presentation Presentation: positive Vertex and OA - occiput anterior Nuchal Cord Nuchal Cord: positive None Amniotic Fluid Description Amniotic Fluid Description: positive Light meconium Episiotomy Type Episiotomy Type: positive None Laceration Laceration: positive None Delivery Outcome Delivery Outcome: positive Livebirth : positive Placed in direct skin contact with mother and [place] used [place] sex: positive Female Cord Cord: positive 3 vessels Placenta Placenta: positive Intact and Spontaneous Estimated Blood Loss Estimated Blood Loss (in cc): 350 Post Delivery Events Post Delivery Events: positive No post delivery events Delivery Comments (Free Text/Narrative) Delivery Comments (Free Text/Narrative): Patient presents in spontaneous labor at term. GBS +. got Ampicillin, epidural. rested. baby category 1 always. recheck after nap and complete and + 2. intact. readied for delivery. bow broken. light mec. pushed for less than 5 minutes to deliver her daughter over intact perineum. more clearly mec with and bigger gush of fluid but baby cried from time of and did great. no concerns. cord clamped and cut after about 3 min. pitocin in IV. no lacerations. uterus contracted well after delivery of placenta. baby girl Kristina.
[2024-01-20] MEDS ORDERED: hydrALAZINE INJ 20 MG/ML VIAL IVP PRN ×2 (01:10)
[2024-01-20] MEDS ORDERED: NALOXONE 0.4 MG/ML VIAL IVP PRN (01:10)
[2024-01-20] MEDS ORDERED: LABETALOL 5 MG/1 ML 20 ML MDV IVP PRN (01:10)
[2024-01-20] MEDS ORDERED: NIFEdipine 10 MG CAPSULE PO PRN (01:10)
[2024-01-20] MEDS ORDERED: OXYTOCIN/SODIUM CHLORIDE 500 ML IV PRN (01:10)
[2024-01-20] MEDS ORDERED: LABETALOL 20 MG/4 ML SYRINGE IVP PRN ×2 (01:10)
[2024-01-20] MEDS ORDERED: SIMETHICONE CHEW 80 MG TABLET PO PRN (01:10)
[2024-01-20] MEDS: ACETAMINOPHEN 500 MG TABLET PO PRN (02:07)
[2024-01-20] MEDS: IBUPROFEN 600 MG TABLET PO PRN (02:07)
[2024-01-20] MEDS: SODIUM CHLORIDE FLUSH 0.9% 10 ML SYRINGE IVP SCH (04:29)
[2024-01-20] MEDS: DOCUSATE SODIUM 100 MG CAPSULE PO SCH (08:34)
--- NOTE | 2024-01-20 14:43 | PHARMACY PROGRESS NOTE ---
Best Possible Medication History Admit Date and Time: 01/19/24 [id number] Home Medications Medication Instructions Recorded Confirmed Type vits no.126-ferrous fum 1 tab PO DAILY 12/17/23 01/19/24 History 28 mg iron-folic acid 800 mcg tablet (Classic ) Processed by: Pharmacy (Medication Reconciliation completed by pharmacy operations managerZoe) Medications reviewed in ED?: No Medication History completed: Yes Patient Interview: Completed Secondary Source(s): Insurance records [facility] Statement: As the person ultimately responsible for medication therapy, providers are able to order a medication from an existing home medication list in [facility] via the "Reconcile Routine" prior to Confirmation of that medication by network support engineer. Such practice is discouraged except when the physician, in their clinical judgment, deems that a medical need exists for a medication without regard to previous use.
[2024-01-21 01:31] VITALS: O2SAT 99
--- NOTE | 2024-01-21 10:10 | Discharge Summary ---
Discharge Summary Admit Date: 01/19/24 Discharge Date: 01/21/24 Discharging Provider: Hermann Ashby MD Code Status: Attempt Resuscitation DIAGNOSES Admission Diagnoses: 40 Weeks gestation Term Labor GBS positive Discharge Diagnoses with Status of Each Condition: Delivery of live chanel Status post spontaneous vaginal delivery HPI History of Present Illness: Subjective Patient reports she is doing well. Lochia appropriate. Denies heavy bleeding. Ambulating. Pelvic and abdominal pain well-controlled. Tolerating oral intake. Diet: Regular. Voiding without difficulty. Passing flatus. Denies BM. Patient is bonding with baby [in room] Breast feeding going well. Denies feeling lightheaded, dizzy or excessively fatigued. Objective General: Alert, oriented, no apparent distress. Cardiovascular: Regular rate. Regular rhythm. Lungs: No increased work of breathing. Abdomen: Uterus firm. Below umbilicus. No guarding or rebound. Extremities: No pain on palpation. No cords palpated. Distal pulses intact. HOSPITAL COURSE Hospital Course: Patient presented at 40 weeks gestation in spontaneous labor and was admitted. Started ampicillin for GBS sepsis prophylaxis. Received an epidural for pain control. Progressed to complete and had a short second stage. Mom and baby did well and were discharged on day 1. ALLERGIES Allergies Allergy/AdvReac Type Severity Reaction Status Date / Time No Known Drug Allergies Allergy Verified 01/13/24 10:08 MEDICATIONS Ambulatory Orders Medication Instructions Recorded Confirmed vits no.126-ferrous fum 1 tab PO DAILY 12/17/23 01/19/24 28 mg iron-folic acid 800 mcg tablet (Classic ) LABS 01/19/24 20:03 FOLLOW UP Follow Up: With [facility] women's care in 1 to 2 weeks. TIME SPENT Time Spent in Discharge (Minutes): 20 Discharge Plan Discharge Patient Disposition: Home, Self Care Prescriptions: Continued Classic 28 mg iron- 800 mcg tablet 1 tab PO DAILY Diet: Regular Print Language: Indonesian Patient Instructions: Vaginal After, Depression Follow-up Care: Mikel Sanchez MD [Primary Care Provider] -
--- NOTE | 2024-01-21 13:16 | Labor Flowsheet ---
Labor Flowsheet Datetime Report Generated by CPN: 01/21/2024 13:16 Datetime: 01/20/2024 19:34 VITAL SIGNS NBP Sys/Yasmine/Mean (mmHg): 120 : 64 : 77 Pulse: 78 Datetime: 01/20/2024 01:07 Membranes Ruptured Date/Time: 01/20/2024 00:42 Datetime: 01/20/2024 00:48 Stage of : Datetime: 01/20/2024 00:46 UTERINE ACTIVITY Monitor Mode: External Frequency (min): 1.5-3 Quality: Moderate Duration (sec): 40-60 Pattern: Normal: <= 5 Contractions in 10 Minutes Resting Tone (Palpate): Relaxed ASSESSMENT A Monitor Mode: External US FHR Baseline Rate : 140 FHR Baseline Changes: No Baseline Change Variability: Moderate 6-25 bpm Accelerations: 15X15 Datetime: 01/20/2024 00:44 SpO2 (%): 100 LaborFlag: Labor Datetime: 01/20/2024 00:42 Membrane Status: Ruptured Membranes Rupture Method: Artificial Amniotic Fluid Color: Light Meconium Amniotic Fluid Amount: Large Datetime: 01/20/2024 00:35 VAGINAL EXAM Dilatation (cm): 10.0 Effacement (%): 100 Exam by: julisa sinai md Datetime: 01/20/2024 00:34 COMMUNICATION Communication: Provider at Bedside Datetime: 01/20/2024 00:30 Decelerations: Late; Variable Actions for Decelerations: Side to Side Datetime: 01/20/2024 00:27 Anesthesia Level Check: T9 Datetime: 01/20/2024 00:23 Patient Position/Activity: Right Lateral; Birthing Ball Hygiene: Daniela Care; Peripad Changed Datetime: 01/19/2024 23:22 Provider Notified (Name): CORRESPONDENCE CLERK Notification Reason: Pain Communication Comments: Pt's pain 5/10 on right side, after self bolus x2. CORRESPONDENCE CLERK to come to bedside. Datetime: 01/19/2024 22:01 MEDICATIONS Magnesium/Antihypertensives: Ephedrine IV (mg) @ 5mg at 2159 Datetime: 01/19/2024 21:36 Temperature (C): 36.1 Temperature Route: Axillary PAIN Pain Scale: 0 Datetime: 01/19/2024 21:27 I/O Interventions: Bello Cath Inserted Datetime: 01/19/2024 21:09 TEACHING Instructional Method: Verbal Plan of Care: Plan of Care Discussed; Labor Labor/Induction: Antibiotic Use Pain Management: Epidural; Pain Scale/Goals; Comfort Measures Medications: Antibiotics Datetime: 01/19/2024 20:52 Station: 0 Cervix, Consistency: Soft Datetime: 01/19/2024 20:42 Epidural Procedure: Completed Datetime: 01/19/2024 20:40 Antibiotics: Ampicillin IV 2 Gm Datetime: 01/19/2024 20:12 ANESTHESIA Epidural Positioning: Sitting Datetime: 01/19/2024 20:09 PROCEDURE TIME OUT Procedure Verify: Correct Patient Position Datetime: 01/19/2024 20:07 PATIENT CARE IV/Blood Work: IV Started; IV Bolus Started; IV Bolus Given ml @ 500
== END 2024-01-21 12:45 | disposition home or self-care (01) | DRG 807 ==
LOC: WFO 19:16 → FBP 19:19
PROVIDERS: ADMIT Obstetrics & Gynecology; ATTEND Obstetrics & Gynecology